=== PATIENT | female | born 1990 | race Caucasian/White ===

== ENCOUNTER 2018-10-22 20:06 | Emergency (ER) | payer SELFPAY ==
[~2018-10-22] VITALS: Ht 157.5 cm; Wt 57.2 kg
[2018-10-22 20:09] VITALS: BP 136/88
== END 2018-10-22 21:07 | disposition home or self-care (01) ==
LOC: ER 20:07
DX: S70.12XA Contusion of left thigh, initial encounter (principal); Z88.5 Allergy status to narcotic agent; W57.XXXA Bitten or stung by nonvenomous insect and other nonvenomous arthropods, initial encounter; Y93.89 Activity, other specified; Y92.89 Other specified places as the place of occurrence of the external cause; Y99.8 Other external cause status
CPT/HCPCS: 99281

== ENCOUNTER 2018-10-25 17:10 | Emergency (ER) | payer SELFPAY ==
[~2018-10-25] VITALS: Ht 157.5 cm; Wt 57.3 kg
[2018-10-25 17:19] VITALS: BP 137/98
[2018-10-25 18:45] LABS: CLARITY,URINE CLEAR (Clear); COLOR,URINE YELLOW (Yellow); GLUCOSE, URINE NEGATIVE (Neg); KETONES,URINE NEGATIVE (Neg); LEUKOCYTE ESTERASE ,URINE SMALL (Neg); NITRITES, URINE NEGATIVE (Neg); OCCULT BLOOD,URINE NEGATIVE (Neg); PROTEIN,URINE NEGATIVE (Neg); UROBILINOGEN,URINE 0.2 E.U/dL (0.2-1.0)
[2018-10-25 18:51] LABS: UA COLLECTION TYPE CLN CATCH MIDSTREAM
[2018-10-25] MEDS ORDERED: METR-159 PO (18:53)
[2018-10-25] MEDS ORDERED: metroNIDAZOLE 500mg tablet PO ONE (18:55)
[2018-10-25 19:10] LABS: BACTERIA,URINE NONE SEEN /HPF (Neg); MUCUS STRANDS NONE SEEN /LPF (Neg); RBC,URINE NONE SEEN /HPF (0-2); SQUAMOUS EPITHELIAL CELL,UR NONE SEEN /LPF (FEW); TRICHOMONAS,URINE FEW /HPF (NEGATIVE)
== END 2018-10-25 19:26 | disposition home or self-care (01) ==
LOC: ER 17:11
DX: A59.9 Trichomoniasis, unspecified (principal); Z88.5 Allergy status to narcotic agent; Z79.899 Other long term (current) drug therapy
CPT/HCPCS: 81001; 87210; 99283; J3490

== ENCOUNTER → 2020-11-06 | Emergency (ER) | payer MEDICAID ==
[~2020-11-06] VITALS: Ht 157.5 cm; Wt 75.0 kg
[2020-11-06 23:56] VITALS: BP 135/91
== END | disposition left against medical advice (07) ==
LOC: ER 23:51
DX: S61.211A Laceration without foreign body of left index finger without damage to nail, initial encounter (principal); Z88.8 Allergy status to other drugs, medicaments and biological substances; W26.0XXA Contact with knife, initial encounter; Y93.89 Activity, other specified; Y92.89 Other specified places as the place of occurrence of the external cause; Y99.8 Other external cause status
CPT/HCPCS: 99281

== ENCOUNTER 2023-11-18 09:48 | Emergency (ER) | payer MEDICAID ==
[~2023-11-18] VITALS: Ht 157.5 cm; Wt 66.5 kg
[2023-11-18 10:29] LABS: STREP A SCREEN POSITIVE (Neg)
[2023-11-18] MEDS ORDERED: PENI500T2 PO (11:25)
[2023-11-18] MEDS ORDERED: IBUP-1984 PO (11:25)
[2023-11-18] MEDS: dexamethasone sod phosphate 10mg/ml inj PO STA (11:40)
[2023-11-18] MEDS: ketorolac trometh 15mg/ml vial 15 MG/ML ML IM ONE (11:41)
[2023-11-18] MEDS: penicillin V potassium 500mg tablet PO ONE (11:44)
[2023-11-18 11:45] VITALS: BP 122/74; PULSE 84; RESP 14; TEMP 97.5; O2SAT 96
== END 2023-11-18 11:48 | disposition home or self-care (01) ==
LOC: ER 09:49
DX: J02.0 Streptococcal pharyngitis (principal); Z20.822 Contact with and (suspected) exposure to COVID-19; Z88.5 Allergy status to narcotic agent
CPT/HCPCS: 36415; 87811; 87880; 96372; 99283; J1100; J1885